=== PATIENT | male | born 1955 | race African-American/Black ===

== ENCOUNTER → 2019-03-14 | Day surgery (SDC) | payer MEDICARE ==
[~2019-03-14] MED LIST: ASPIR 8181 MG PO; ATORVASTATIN CA80 MG PO; CARVEDILOL6.25 MG PO; FAMOTIDINE20 MG PO; FENTANYL CITRATE/PF 100MCG/2 ML INJ ONE; FOLIC ACID1 MG PO; GABAPENTIN100 MG PO; HYDRALAZINE HCL 20 MG/ML VIAL ONE; ISOSORBIDE MONO30 MG PO; LIDOCAINE HCL 2% LOCAL INJ 5 ML SDV VIAL INJ ONE; ONE DAILY COMP1 EACH PO; PROPOFOL IV EMULSION 10 MG/ML 20 ML VIAL ONE; ZESTRIL20 MG PO
--- OUTSIDE RECORDS SUMMARY | 2019-03-14 05:49 | XMS REPORT ---
Author [facility] Address Unknown Phone Unavailable Care Team Providers Care Live In Caregiver Name Role Phone Unavailable Unavailable Problems This patient has no known problems. Allergies, Adverse Reactions, Alerts This patient has no known allergies or adverse reactions. Medications This patient has no known medications. Encounters Start Date/Time End Date/Time Encounter Type Admission Type Attending [facility] Care Department Encounter ID 2018-06-28 12:14:[address] [facility] [id number] 2018-03-15 13:54:[address] [facility] [id number] 2018-03-15 06:10:00 Inpatient [facility] [id number] 2018-03-15 00:00:[address] [facility] [id number] 2018-03-14 00:00:[address] [facility] [id number] 2018-03-10 00:00:00 Inpatient [facility] [id number] 2018-03-09 08:22:00 Inpatient [facility] [id number] 2018-12-26 00:00:00 2018-12-26 00:00:[address] [facility] [id number] 2018-12-23 11:29:40 2018-12-23 11:29:[address] [facility] [id number] 2018-08-31 00:00:00 2018-08-31 00:00:[address] [facility] [id number] 2018-08-01 00:00:00 2018-08-01 00:00:[address] [facility] [id number] 2018-07-22 00:00:00 2018-07-22 00:00:[address] [facility] [id number] 2018-07-06 08:56:23 2018-07-06 08:56:[address] [facility] [id number] 2018-06-30 14:36:52 2018-06-30 14:36:[address] [facility] [id number] 2018-06-30 14:06:58 2018-06-30 14:06:58 Outpatient [facility] [id number] 2018-06-30 00:00:00 2018-06-30 00:00:[address] [facility] [id number] 2018-06-29 08:02:31 2018-06-29 08:02:[address] [facility] [id number] 2018-06-27 16:37:42 2018-06-27 16:37:[address] [facility] [id number] 2018-06-27 15:59:42 2018-06-27 15:59:42 Outpatient [facility] [id number] 2018-06-24 09:37:04 2018-06-24 09:37:[address] [facility] [id number] 2018-04-27 09:50:45 2018-04-27 09:50:[address] [facility] [id number] 2018-04-27 00:00:00 2018-04-27 00:00:[address] [facility] [id number] 2018-04-14 14:01:44 2018-04-14 14:01:[address] [facility] [id number] 2018-03-30 10:14:28 2018-03-30 10:14:[address] [facility] [id number] 2018-03-11 23:00:37 2018-03-11 23:00:37 Emergency [facility] [id number] 2018-03-08 14:32:59 2018-03-08 14:32:[address] [facility] [id number] 2018-03-08 14:07:02 2018-03-08 14:07:[address] [facility] [id number] 2018-03-08 00:00:00 2018-03-08 00:00:[address] [facility] [id number] 2018-03-07 15:58:00 2018-03-07 15:58:00 Emergency [facility] [id number] 2018-01-26 12:44:05 2018-01-26 12:44:[address] [facility] [id number] 2018-01-21 10:45:28 2018-01-21 10:45:[address] [facility] [id number] 2017-12-07 07:34:27 2017-12-07 07:34:[address] [facility] [id number] 2017-11-25 11:31:00 2017-11-25 11:31:[address] [facility] [id number] 2017-11-17 10:14:00 2017-11-17 10:14:[address] [facility] [id number] 2017-11-17 09:03:21 2017-11-17 09:03:[address] [facility] [id number] 2017-11-08 15:00:52 2017-11-08 15:00:[address] [facility] [id number] 2017-11-08 14:03:34 2017-11-08 14:03:[address] [facility] [id number] 2017-10-22 12:14:22 2017-10-22 12:14:[address] [facility] [id number] 2017-10-12 08:58:28 2017-10-12 08:58:[address] [facility] [id number] 2017-10-11 06:16:24 2017-10-11 06:16:[address] [facility] [id number] 2017-10-11 03:42:26 2017-10-11 03:42:26 Outpatient [facility] [id number] 2017-10-10 21:15:36 2017-10-10 21:15:[address] [facility] [id number] 2017-09-30 21:55:02 2017-09-30 21:55:[address] [facility] [id number] 2017-09-30 17:04:27 2017-09-30 17:04:[address] [facility] [id number] 2017-09-30 16:40:25 2017-09-30 16:40:[address] [facility] [id number] 2017-09-30 16:37:42 2017-09-30 16:37:[address] [facility] [id number] 2017-09-30 16:19:19 2017-09-30 16:19:19 Emergency [facility] [id number] 2017-09-30 01:09:06 2017-09-30 01:09:[address] [facility] [id number] 2017-09-17 00:00:00 2017-09-17 00:00:[address] [facility] [id number] 2017-05-14 12:43:17 2017-05-14 12:43:[address] [facility] [id number]
[2019-03-14 08:40] VITALS: BP 137/82
--- NOTE | 2019-03-14 14:39 | Operative Report ---
DATE OF PROCEDURE: SURGEON: Tesfaye Villanueva MD PROCEDURE: Colonoscopy. PREPROCEDURE DIAGNOSES: Hemoccult positive stools, left lower quadrant pain, constipation, rule out colorectal neoplasm, inflammatory bowel disease, and perianal disease. DESCRIPTION OF PROCEDURE: After informed and written consent, premedications with monitored anesthesia care, standard video Olympus colonoscope was introduced into the rectum and all the way into the terminal ileum. The terminal ileum and cecum appeared to be normal. Ascending colon and sigmoid colon showed scattered diverticulosis with some erythema in the sigmoid colon. No evidence of diverticulitis was noted. Multiple colon polyps were noted. First, there was a polyp in the sigmoid colon at 18 cm from the anal verge which was 1 cm in size, removed by hot snare and then 1 Endoclip was placed. Eight colon polyps were identified ranging in sizes from 4 to 7 mm in the hepatic flexure, proximal transverse, mid transverse, splenic flexure, and descending colon, all of them removed by cold snare. Internal hemorrhoids were seen retroflexion. IMPRESSION: 1. Multiple colon polyps, 9 colon polyps, one of them in the sigmoid removed by hot snare and the rest removed using cold snare. 2. Diverticulosis. 3. Internal hemorrhoids. RECOMMENDATIONS: Avoid NSAID for 2 weeks. Okay to continue aspirin. Followup in the office in 2 to 3 weeks to check on the pathology, repeat colonoscopy in 3 years. Further recommendations will be based on the patient's clinical course. Tesfaye Villanueva MD SR/MODL /[id number]
== END | disposition home or self-care (01) ==
LOC: OR 05:47
PROVIDERS: ATTEND Internal Medicine Gastroenterology
DX: R19.5 Other fecal abnormalities (principal); D12.3 Benign neoplasm of transverse colon; D12.4 Benign neoplasm of descending colon; D12.5 Benign neoplasm of sigmoid colon; K57.30 Diverticulosis of large intestine without perforation or abscess without bleeding; K64.8 Other hemorrhoids; K59.00 Constipation, unspecified; E66.3 Overweight; Z71.3 Dietary counseling and surveillance; I25.10 Atherosclerotic heart disease of native coronary artery without angina pectoris; I10 Essential (primary) hypertension; I25.2 Old myocardial infarction; F41.9 Anxiety disorder, unspecified; Z79.82 Long term (current) use of aspirin; Z68.25 Body mass index [BMI] 25.0-25.9, adult; Z87.891 Personal history of nicotine dependence
CPT/HCPCS: 45385; 88305; J0360; J2001; J2704